=== PATIENT | male | born 1990 | race Caucasian/White ===

== ENCOUNTER 2016-12-11 00:23 | Emergency (ER) | payer OTHER ==
[~2016-12-11] VITALS: Ht 180.3 cm; Wt 95.5 kg
[2016-12-11 00:38] VITALS: Ht 180.3 cm; Wt 95.5 kg
[2016-12-11] MEDS ORDERED: TETRACAINE 0.5% 4 ML OPH BOTH EYES ONE (02:30)
[2016-12-11] MEDS ORDERED: IBUP800T25 PO (03:54)
[2016-12-11] MEDS ORDERED: ERYT1OIN6 BOTH EYES (03:54)
[2016-12-11] MEDS ORDERED: FLUORESCEIN STRIP BOTH EYES ONE (04:00)
--- NOTE | 2016-12-11 04:07 | ERD ---
ER Documentation Chief Complaint Date/Time DATE: 12/11/16 TIME: 04:03 Chief Complaint Bilateral Eye pain possible foreign body since 10AM HPI Is a 18-year-old male who presents the emergency department today complaining of bilateral eye pain but left worse than right. States he woke up like this this morning. States his eyes are red and he cannot open them that he "cannot see".. States that he smokes marijuana daily and use meth yesterday. Denies any specific trauma, fevers or chills. ROS All systems reviewed and are negative except as per history of present illness. Medications Home Meds Active Scripts Ibuprofen* (Motrin*) 800 Mg Tab, 800 MG PO Q6, #30 TAB Prov:MAKSIM DUGAN PA-C 12/11/16 Erythromycin (Erythromycin Opth) 3.5 Gm Oint..gm., 1 APPLIC BOTH EYES QID for 7 Days, #1 Prov:MAKSIM DUGAN PA-C 12/11/16 Allergies Allergies: Coded Allergies: No Known Allergy (Unverified , 12/11/16) PMhx/Soc Medical and Surgical Hx: pt denies Medical Hx, pt denies Surgical Hx Hx Alcohol Use: No Hx Substance Use: No Hx Tobacco Use: No Smoking Status: Never smoker Physical Exam Vitals Vital Signs Date Time Temp Pulse Resp B/P Pulse Ox O2 Delivery O2 Flow Rate FiO2 12/11/16 00:38 97.6 50 20 129/73 100 Physical Exam Const: No acute distress Head: Atraumatic Eyes: Bilateral conjunctival erythema with pinpoint pupils ENT: Normal External Ears, Nose and Mouth. Neck: Full range of motion..~ No meningismus. Resp: Clear to auscultation bilaterally Cardio: Regular rate and rhythm, no murmurs Neur: Awake and alert Psych: Normal Mood and Affect Results 24 hrs Current Medications Medications (Trade) Dose Ordered Sig/Yashira Route PRN Reason Start Time Stop Time Status Last Admin Dose Admin Tetracaine HCl (Tetracaine 0.5% Steri-Unit Sally) 4 drop ONCE ONCE BOTH EYES 12/11/16 02:30 12/11/16 02:31 DC 12/11/16 02:39 Fluorescein Sodium (Irehq-G-Xaalr) 1 strip ONCE ONCE BOTH EYES 12/11/16 04:00 12/11/16 04:01 DC Procedures/MDM This 26-year-old male who presents to the emergency department today complaining of bilateral eye pain left greater than right and eye redness and inability to open his eyes or see since this morning. In the exam room patient was slapping at his face and slapping at his nose. He was unable to open his eyes for me. I did discuss the patient with Dr. Sethi who evaluated the patient and recommended the patient be given tetracaine and then a Isaias lens. Both eyes were irrigated with 500 mL of normal saline. Floor seen eye test was then done under a Ramey lamp that showed a corneal abrasion on the left eye. Low suspicion for foreign body, hyphema, globe rupture, acute narrow angle glaucoma. Visual acuity prior to departure was right eye 20/100 left eye 20/70 Patient was given a prescription for Motrin, erythromycin. He was instructed to follow-up with [facility] today. He was instructed to wear sunglasses outside or in the sun. Patient was also instructed to stop abusing drugs. At this time the patient is stable for discharge and outpatient management. Patient should follow up with their PCP in the next 1-2 days. They may return to the emergency department sooner for any persistent or worsening of symptoms. Patient understood and agreed with the plan. Departure Diagnosis: Primary Impression: Eye problem Condition: Fair Patient Instructions: Corneal Abrasion Referrals: [facility] YOU HAVE RECEIVED A MEDICAL SCREENING EXAM AND THE RESULTS INDICATE THAT YOU DO NOT HAVE A CONDITION THAT REQUIRES URGENT TREATMENT IN THE EMERGENCY DEPARTMENT. FURTHER EVALUATION AND TREATMENT OF YOUR CONDITION CAN WAIT UNTIL YOU ARE SEEN IN YOUR DOCTORS OFFICE WITHIN THE NEXT 1-2 DAYS. IT IS YOUR RESPONSIBILITY TO MAKE AN APPOINTMENT FOR FOLOW-UP CARE. IF YOU HAVE A PRIMARY DOCTOR --you should call your primary doctor and schedule an appointment IF YOU DO NOT HAVE A PRIMARY DOCTOR YOU CAN CALL OUR PHYSICIAN REFERRAL HOTLINE AT IF YOU CAN NOT AFFORD TO SEE A PHYSICIAN YOU CAN CHOSE FROM THE FOLLOWING [facility] [address] [facility]. [facility] [address] [facility] [facility] [address] [facility] [address] [facility] [address] [facility]. [facility] [address] [facility] Hours: Mon - Fri 9:00 AM - 5:00 PM Additional Instructions: Call your primary care doctor TOMORROW for an appointment during the next 1-2 days.See the doctor sooner or return here if your condition worsens before your appointment time. Take antibiotics as prescribed Take Tylenol or Motrin for pain Make an appointment at [facility] Wear sunglasses when you are driving and outside in the sunlight MAKSIM DUGAN PA-C Dec 11, 2016 04:07
== END 2016-12-11 04:56 | disposition home or self-care (01) ==
LOC: FTE 00:23
DX: H57.13 Ocular pain, bilateral (principal)
CPT/HCPCS: Z7502; Z7610; 99284